=== PATIENT | female | born 1975 | race Caucasian/White ===

== ENCOUNTER → 2022-03-29 | Outpatient (CLI) | payer MEDICAID | LOC: RAD 10:27 | PROVIDERS: ATTEND Nurse Practitioner Family | DX: M43.16 Spondylolisthesis, lumbar region (principal); M54.31 Sciatica, right side; M48.061 Spinal stenosis, lumbar region without neurogenic claudication; Z90.49 Acquired absence of other specified parts of digestive tract ==